=== PATIENT | female | born 1995 | race Caucasian/White ===

== ENCOUNTER 2017-10-03 21:52 | Emergency (ER) | payer OTHER ==
[~2017-10-03] VITALS: Ht 180.3 cm; Wt 99.7 kg
[2017-10-03 21:56] VITALS: Ht 180.3 cm; Wt 99.7 kg
[2017-10-03] MEDS ORDERED: LACTATED RINGER'S 1000ML 1,000 ML IV STA (22:04)
[2017-10-03] MEDS ORDERED: ONDANSETRON INJ 2 MG/ML 2 ML VIAL IV STA (22:04)
[2017-10-03] MEDS ORDERED: KETOROLAC TROMETHAMINE 30 MG/ML VIAL IV STA (22:11)
[2017-10-03 22:38] VITALS: O2SAT 98
[2017-10-03] MEDS ORDERED: DULO60CA44 PO (22:45)
[2017-10-03] MEDS ORDERED: BCPILLS PO (22:45)
[2017-10-03] MEDS ORDERED: FEXO1TAB49 PO (22:45)
[2017-10-03] MEDS ORDERED: MULTTAB58 PO (22:45)
[2017-10-03 22:55] LABS: URINE APPEARANCE CLEAR (CLEAR); URINE BILIRUBIN NEG (NEG); URINE COLOR DK YELLOW; URINE EPITHELIAL CELL AUTO 20-30 /lpf (0-5); URINE NITRITE NEG (NEG); URINE PH 8.5 (4.5-7.5); URINE SPECIFIC GRAVITY 1.007 (1.000-1.030); UROBILINOGEN NEG (NEG); ZZUR CULT IF INDIC CLEAN CATCH NO
[2017-10-03 22:56] LABS: MANUAL MICROSCOPIC REQUIRED? NO; REVIEW REQ? NO
[2017-10-03 23:30] LABS: PREG INTERNAL NEGATIVE QC NEG CLEAR BACKGROUND; PREG INTERNAL POSITIVE QC POS CONTROL LINE
[2017-10-03 23:35] LABS: ALT/SGPT 153 U/L (12-78); AST/SGOT 122 U/L (15-37); BLOOD UREA NITROGEN 3 mg/dl (7-18); BUN/CREATININE RATIO 5.7 (10-20); CALCIUM 8.6 mg/dl (8.5-10.1); CARBON DIOXIDE 25 mmol/L (21-32); CHLORIDE 104 mmol/L (98-107); CREATININE 0.59 mg/dl (0.60-1.20); GLUCOSE 106 mg/dl (70-99); MAGNESIUM 1.9 mg/dl (1.8-2.4); POTASSIUM 3.6 mmol/L (3.5-5.1); SODIUM 138 mmol/L (136-145)
[2017-10-03 23:36] LABS: MEAN CELL VOLUME 87.5 fL (80-100); MEAN CORPUSCULAR HEMOGLOBIN 29.6 pg (25-34); MEAN CORPUSCULAR HGB CONC 33.8 g/dl (32-36); MEAN PLATELET VOLUME 9.7 fL (7.4-10.4); PLATELET COUNT 131 K/uL (130-400); RED BLOOD COUNT 4.23 M/uL (4.2-5.4); WHITE BLOOD COUNT 8.42 K/uL (4.8-10.8)
[2017-10-03 23:46] LABS: ALKALINE PHOSPHATASE 324 U/L (45-117); THYROID STIMULATING HORMONE 0.899 uIu/ml (0.300-4.500)
[2017-10-03 23:48] LABS: BASO ABS # 0.08 K/uL (0-0.2); BASOPHIL % 0.9 %; COMPLETE YES; EOSINOPHIL % 0.9 %; LYMPH ABS # 1.17 K/uL (1.2-3.4); LYMPHOCYTE % 13.9 %; NEUTROPHILS % 23.5 %; VARIANT LYM ABS # 4.98 K/uL; VARIANT LYMPHOCYTE % 59.1 %
[2017-10-04 00:05] LABS: INR 0.9 (0.9-1.1); PARTIAL THROMBOPLASTIN RATIO 1.1; PROTHROMBIN TIME (PATIENT) 10.1 SECONDS (9.0-12.0)
[2017-10-04 01:07] VITALS: BP 115/73; PULSE 80; TEMP 36.8; O2SAT 97
--- NOTE | 2017-10-04 04:26 | EMERGENCY ROOM VISIT NOTE ---
History First contact with patient: 21:55 Chief Complaint: DEHYDRATION Stated Complaint: DEHYDRATION, DIZZY, EXHAUSTION, VOMITING History of Present Illness The patient is a 22 year old female who presents to the Emergency Room with complaints of fever, chills, nausea, vomiting, headache, lightheadedness for the past few days. Patient denies chest pain, dyspnea, abdominal pain, diarrhea , cough, neck stiffness, earache, sore throat, runny nose. No recent travel. No tick bites. Patient states she feels dehydrated. Review of Systems See HPI for pertinent positives & negatives. A total of 10 systems reviewed and were otherwise negative. Past Medical/Surgical History PTSD, vasovagal syncope Social History Smoking Status: Current Some Day Smoker Smokeless Tobacco Use: No Alcohol Use: occasionally Drug Use: marijuana Marital Status: in relationship Occupation Status: [employer] student Current/Historical Medications Scheduled Control Pills ( Control Pills), 1 TAB PO DAILY Duloxetine Hcl (Cymbalta), 60 MG PO DAILY Fexofenadine Hcl (Radha Allergy), 180 MG PO DAILY Multiple Vitamin (Multivitamin), 1 TAB PO DAILY Physical Exam Vital Signs Date Time Temp Pulse Resp B/P (MAP) Pulse Ox O2 Delivery O2 Flow Rate FiO2 10/04/17 01:07 36.8 80 18 115/73 97 10/03/17 22:38 98 Room Air 10/03/17 22:38 98 Room Air 10/03/17 22:37 84 10/03/17 22:33 85 120/69 84 126/78 103 113/77 10/03/17 21:56 37.6 96 18 142/79 97 Room Air Physical Exam VITALS: Vitals are noted on the nurse's note and reviewed by myself. Vital signs stable. GENERAL: Pleasant female, in no acute distress, nondiaphoretic, well-developed well-nourished. SKIN: The skin was without rashes, erythema, edema, or bruising. There is no tenting of the skin. Capillary reflex less than 2 seconds. HEAD: Normocephalic atraumatic. EARS: External auditory canals clear, tympanic membranes pearly chapman without erythema or effusion bilaterally. EYES: Pupils equal round and reactive to light and accommodation. Conjunctivae without injection, sclerae without icterus. Extraocular movements intact. NOSE: Patent, turbinates without inflammation or discharge. No sinus tenderness. MOUTH: Mucous membranes mildly dry. Pharynx without erythema or exudate. Uvula midline. Airway patent. Tongue does not deviate. NECK: Supple without nuchal rigidity. No lymphadenopathy. No thyromegaly. Cervical spine is nontender. No JVD. No meningeal signs HEART: Regular rate and rhythm without murmurs gallops or rubs. LUNGS: Clear to auscultation bilaterally without wheezes, rales or rhonchi. No dullness to percussion. No retractions or accessory muscle use. ABDOMEN: Positive bowel sounds x 4. Normal tympanic percussion. Soft, nontender, without masses or organomegaly. Levy sign negative. No guarding or rebound tenderness. MUSCULOSKELETAL: No muscle atrophy, erythema, or edema noted. NEURO: Patient was alert and oriented to person place and time. Normal sensation to light and sharp touch. No focal neurological deficits. Medical Decision & Procedures Laboratory Results 10/03/17 22:30 Red Blood Count 4.23, Mean Corpuscular Volume 87.5, Mean Corpuscular Hemoglobin 29.6, Mean Corpuscular Hemoglobin Concent 33.8, Mean Platelet Volume 9.7 10/03/17 22:30 Test 10/03/17 22:25 10/03/17 22:30 Urine Color DK YELLOW Urine Appearance CLEAR (CLEAR) Urine pH 8.5 (4.5-7.5) Urine Specific [place] 1.007 (1.000-1.030) Urine Protein NEG (NEG) Urine Glucose (UA) NEG (NEG) Urine Ketones NEG (NEG) Urine Occult Blood NEG (NEG) Urine Nitrite NEG (NEG) Urine Bilirubin NEG (NEG) Urine Urobilinogen NEG (NEG) Urine Leukocyte Esterase TRACE (NEG) Urine WBC (Auto) 1-5 /hpf (0-5) Urine RBC (Auto) 5-10 /hpf (0-4) Urine Hyaline Casts (Auto) 1-5 /lpf (0-5) Urine Epithelial Cells (Auto) 20-30 /lpf (0-5) Urine Bacteria (Auto) NEG (NEG) White Blood Count 8.42 K/uL (4.8-10.8) Red Blood Count 4.23 M/uL (4.2-5.4) Hemoglobin 12.5 g/dL (12.0-16.0) Hematocrit 37.0 % (37-47) Mean Corpuscular Volume 87.5 fL (80-100) Mean Corpuscular Hemoglobin 29.6 pg (25-34) Mean Corpuscular Hemoglobin Concent 33.8 g/dl (32-36) Platelet Count 131 K/uL (130-400) Mean Platelet Volume 9.7 fL (7.4-10.4) RDW Standard Deviation 42.2 fL (36.4-46.3) RDW Coefficient of Variation 13.2 % (11.5-14.5) Neutrophils % (Manual) 23.5 % Lymphocytes % (Manual) 13.9 % Variant Lymphocytes % (manual) 59.1 % Monocytes % (Manual) 1.7 % Eosinophils % (Manual) 0.9 % Basophils % (Manual) 0.9 % Neutrophils # (Manual) 1.98 K/uL (1.4-6.5) Total Absolute Neutrophils 1.98 K/uL (1.4-6.5) Lymphocytes # (Manual) 1.17 K/uL (1.2-3.4) Absolute Variant Lymphocytes 4.98 K/uL Total Absolute Lymphocytes 6.15 K/uL (1.2-3.4) Monocytes # (Manual) 0.14 K/uL (0.11-0.59) Eosinophils # (Manual) 0.08 K/uL (0-0.5) Basophils # (Manual) 0.08 K/uL (0-0.2) Red Blood Cell Morphology Unremarkable Prothrombin Time 10.1 SECONDS (9.0-12.0) Prothromb Time International Ratio 0.9 (0.9-1.1) Activated Partial Thromboplast Time 28.7 SECONDS (21.0-31.0) Partial Thromboplastin Ratio 1.1 Anion Gap 9.0 mmol/L (3-11) Est Creatinine Clear Calc Drug Dose 197.7 ml/min Estimated GFR () > 150.0 Estimated GFR (Non- 131.9 BUN/Creatinine Ratio 5.7 (10-20) Calcium Level 8.6 mg/dl (8.5-10.1) Magnesium Level 1.9 mg/dl (1.8-2.4) Total Bilirubin 1.3 mg/dl (0.2-1) Direct Bilirubin 0.8 mg/dl (0-0.2) Aspartate Amino Transf (AST/SGOT) 122 U/L (15-37) Alanine Aminotransferase (ALT/SGPT) 153 U/L (12-78) Alkaline Phosphatase 324 U/L (45-117) Total Protein 7.2 gm/dl (6.4-8.2) Albumin 3.1 gm/dl (3.4-5.0) Thyroid Stimulating Hormone (TSH) 0.899 uIu/ml (0.300-4.500) Human Chorionic Gonadotropin, Qual NEG (NEG) Hepatitis B Surface Antigen NEG (NEG) Hepatitis C Antibody NEG (NEG) Monoscreen POS (NEG) Medications Administered Medications (Trade) Dose Ordered Sig/Oren Route Start Time Stop Time Status Last Admin Dose Admin Ondansetron HCl (Zofran Inj) 4 mg NOW STAT IV 10/03/17 22:04 10/03/17 22:06 DC 10/03/17 22:47 4 MG Lactated Ringer's 1,000 ml @ 999 mls/hr Q1H1M STAT IV 10/03/17 22:04 10/03/17 23:04 DC 10/03/17 22:46 999 MLS/HR Ketorolac Tromethamine (Toradol Inj) 30 mg NOW STAT IV 10/03/17 22:11 10/03/17 22:12 DC 10/03/17 22:46 30 MG ED Course Prior records/ancillary studies reviewed and summarized above. Nursing notes reviewed. Additional history obtained from friend. The patient's history was concerning for fever, chills, vomiting, lightheadedness. Differential diagnosis: Etiologies such as metabolic, infection, hypo/hyperglycemia, electrolyte abnormalities, cardiac sources, intracerebral event, toxicologic, neurologic, as well as others were entertained. Physical examination: As above. ER treatment provided: IV Lock LR, zofran, tordaol On reassessment the patient felt better. Diagnostics interpretation by me: ECG: Normal sinus, normal intervals, no acute ST-T wave changes. Impression normal sinus rhythm interpreted by myself The labs revealed mildly elevated LFTs. Positive mono and LFTs were most likely elevated secondary to mono infection Exam and history seem consistent with viral illness of mononucleosis. Patient was neurovascularly and neurologically intact. She had a low-grade temperature. She is tolerating fluids. She felt much better after being medicated as above. She is advised to rest, stay well-hydrated, take medications as directed and to follow-up health services in a few days or here in the ER sooner for high fevers, lethargy, abdominal pain, neck stiffness, worsening signs or symptoms or as needed. She is advised no strenuous activity , contact sports or sharing drinks saliva the next few weeks and do not resume them until cleared by health services. By the evaluation outlined above emergent etiologies such as electrolyte abnormalities, cardiac sources, intracerebral event, toxologic, neurologic, abnormalities blood glucose, metabolic, as well as others were deemed relatively unlikely. The pt informed about the findings as listed above. All questions were answered and pleased with the treatment. Return instructions were outlined and the patient was discharged in stable condition. Outpatient prescription management: Connie Referral: The patient was referred back to health services and/or primary care physician for follow-up in 2 to 3 days for a recheck of the current condition. Case reviewed with my attending. Medical Decision As above Medication Reconcilliation Current Medication List: was personally reviewed by me Blood Pressure Screening Patient's blood pressure: Normal blood pressure Impression Primary Impression: Mononucleosis Departure Information Referrals No Doctor, Assigned (PCP) Patient Instructions My [facility]
== END 2017-10-04 01:07 | disposition home or self-care (01) ==
LOC: C.EDB 21:55
DX: B27.90 Infectious mononucleosis, unspecified without complication (principal); F17.200 Nicotine dependence, unspecified, uncomplicated; F12.90 Cannabis use, unspecified, uncomplicated; Z79.3 Long term (current) use of hormonal contraceptives

== ENCOUNTER → 2017-12-24 | Day surgery (SDC) | payer OTHER ==
[~2017-12-24] MED LIST: BCPILLS PO; DULO60CA44 PO; FEXO1TAB49 PO; MULTTAB58 PO
[2017-12-24 07:32] VITALS: BP 119/65; PULSE 91; O2SAT 98
[2017-12-24 08:24] VITALS: BP 133/70; PULSE 74
--- NOTE | 2017-12-25 16:43 | Procedure Note ---
Procedure Note Date of Service Dec 24, 2017. Procedure Note Procedure performed: Head-up tilt table test Staff xray tech: Donavon Sam MD Indication: Dizziness and syncope Procedure in detail: The patient was informed of the risks benefits and alternatives to the intended procedure. She understood such which proceed. She was placed in the supine position where continuous monitoring was initiated. This included periodic blood pressure monitoring, pulse oximetry and continuous telemetry. After a brief period in the supine position she was tilted to 70 degrees. Hemodynamics and symptoms were monitored until the conclusion of the test. At the conclusion of the test the patient was returned to the supine position. Hemodynamics and symptoms were allowed to return to normal prior to discharge. Patient tolerated procedure well there no immediate complications. Findings: Baseline blood pressure was 127/70 with a pulse of 80 With tilting the patient blood pressure did not change. Heart rate did increase to a maximum of 111 beats per minute The patient did report symptoms of nausea and paresthesias There was no syncope At the conclusion of the test the patient blood pressure was 137/79 with a pulse of 77 Impression: Based on the increase in heart rate with head-up tilting she does meet criteria for POTS However, this was a very minimal increase in heart rate overall, and she did not have symptoms of dizziness or syncope
== END | disposition home or self-care (01) ==
LOC: C.CATH 07:08
PROVIDERS: ATTEND Internal Medicine Clinical Cardiac Electrophysiology
DX: R55 Syncope and collapse (principal); R00.2 Palpitations; F32.9 Major depressive disorder, single episode, unspecified; F41.9 Anxiety disorder, unspecified; F43.10 Post-traumatic stress disorder, unspecified; Z81.8 Family history of other mental and behavioral disorders